=== PATIENT | female | born 1995 | race Caucasian/White ===

== ENCOUNTER 2016-07-31 11:50 | Emergency (ER) | payer OTHER ==
[2016-07-31 12:22] VITALS: RESP 16; TEMP 98.2
--- NOTE | 2016-07-31 14:30 | CPEKG ---
Heart Rate: 87 RR Interval: 690 P-R Interval: 148 QRSD Interval: 102 QT Interval: 372 QTC Interval: 448 P Dow: 51 QRS Dow: 3 T Wave Dow: 22 EKG Severity - NORMAL ECG - EKG Impression: SINUS RHYTHM Electronically Signed By: Johnathon Maddox 31-Jul-2016 14:48:00
--- NOTE | 2016-07-31 14:36 | EDPHY ---
[id number] ILLNESS: This 21-year-old woman has been having some cold symptoms with congestion and postnasal drip for the last 2 days. She felt pretty well except for mild sore throat last night and then awakened this morning at 9 o' clock with tightness in the left side of her chest which is worse with moving and worse with exhalation. Symptoms are moderate to severe. She did notice a little bit of wheezing night at the gym and had childhood asthma but has not had any since. No radiation. No cough or hemoptysis. No leg swelling recent mobilization or travel. Symptoms not better worse with exertion. REVIEW OF SYSTEMS: Eye: no change in vision ENT: no sore throat Cardiac: HPI Pulmonary: HPI Abdomen: no vomiting, diarrhea, abdominal pain Musculoskeletal: no back pain or leg swelling Skin: no rash Neuro: no headache Constitutional: no fever : no urinary symptoms A comprehensive 10 point review of systems is otherwise negative aside from elements mentioned in the history of present illness. PAST MEDICAL HISTORY: Negative Social history: Nonsmoker, no family history of premature coronary disease, a grandmother had a venous thromboembolism in her 60s. General Appearance: Alert and conversant, cooperative. Eyes: No scleral icterus. ENT, Mouth: Normal mucous membranes. Respiratory: Normal respiratory effort, breath sounds equal, lungs are clear to auscultation. No wheezing or rales. Cardiovascular: Regular rate and rhythm. Gastrointestinal: Abdomen is soft and non tender. Neurological: Alert and oriented x3. Normally conversant. Face symmetric, normal movement and sensation in all extremities. Skin: Warm and dry, no rashes. Musculoskeletal: No peripheral edema and no joint swelling. No calf tenderness. Psychiatric: Not agitated. Emergency Department course/MDM: Likely musculoskeletal or inflammatory. Plan for x-ray and EKG and D-dimer. Oral ibuprofen 600 mg. 1532: Results discussed. Negative x-ray D-dimer and EKG. Symptomatic treatment. Smoking Status: Never smoked Constitutional: Initial Vital Signs Temperature (C) 36.8 C 07/31/16 12:19 Heart Rate 80 07/31/16 12:19 Respiratory Rate 16 07/31/16 12:19 Blood Pressure 136/99 H 07/31/16 12:19 O2 Sat (%) 99 07/31/16 12:19 O2 Delivery Mode Room Air Allergies/Adverse Reactions: sulfamethoxazole Allergy (Verified 07/31/16 12:23) Home Medications: Medication Instructions Recorded No Home Meds 07/31/16 Medical Decision Making - Diagnostics EKG Interpretation: 12-lead EKG interpreted by me; official reading is in trace master. My interpretation is sinus rhythm, rate 87, no acute ischemic changes. Differential Diagnosis: Differential diagnosis considered for chest pain including but not limited to myocardial ischemia, aortic dissection, pericarditis, pulmonary embolus, chest wall pain, pleural inflammation and pulmonary infectious causes. - Data Points Laboratory Results: Laboratory Results 07/31/16 14:35 07/31/16 14:35 07/31/16 14:35 WBC 7.32 10^3/uL (3.80-9.50) RBC 4.70 10^6/uL (4.18-5.33) Hgb 14.1 g/dL (12.6-16.3) Hct 42.7 % (38.0-47.0) MCV 90.9 fL (81.5-99.8) MCH 30.0 pg (27.9-34.1) MCHC 33.0 g/dL (32.4-36.7) RDW 13.4 % (11.5-15.2) Plt Count 291 10^3/uL (150-400) MPV 9.7 fL (8.7-11.7) Neut % (Auto) 62.6 % (39.3-74.2) Lymph % (Auto) 26.1 % (15.0-45.0) [place] % (Auto) 7.4 % (4.5-13.0) Eos % (Auto) 3.0 % (0.6-7.6) Baso % (Auto) 0.8 % (0.3-1.7) Nucleat RBC Rel Count 0.0 % (0.0-0.2) Absolute Neuts (auto) 4.58 10^3/uL (1.70-6.50) Absolute Lymphs (auto) 1.91 10^3/uL (1.00-3.00) Absolute Monos (auto) 0.54 10^3/uL (0.30-0.80) Absolute Eos (auto) 0.22 10^3/uL (0.03-0.40) Absolute Basos (auto) 0.06 10^3/uL (0.02-0.10) Absolute Nucleated RBC 0.00 10^3/uL (0-0.01) Immature Gran % 0.1 % (0.0-1.1) Immature Gran # 0.01 10^3/uL (0.00-0.10) D-Dimer < 0.27 ug/mLFEU (0.00-0.50) Sodium 141 mEq/L (134-144) Potassium 4.8 mEq/L (3.5-5.2) Chloride 107 mEq/L (97-110) Carbon Dioxide 23 mEq/l (22-31) Anion Gap 11 mEq/L (8-16) BUN 10 mg/dL (7-23) Creatinine 0.6 mg/dL (0.6-1.0) Estimated GFR > 60 Glucose 100 mg/dL (70-100) Calcium 9.1 mg/dL (8.5-10.4) Beta HCG, Qual NEGATIVE Medications Given: Discontinued Medications Ibuprofen (Motrin) 600 mg PO EDNOW ONE Stop: 07/31/16 14:47 Last Admin: 07/31/16 16:02 Dose: Not Given Departure - Departure Disposition: Home, Routine, Self-Care Clinical Impression: Chest pain Condition: Good Instructions: Chest Pain (ED) Additional Instructions: ibuprofen 600mg by mouth every 6 hours as needed for next 3-5 days likely inflammatory or musculoskeletal Referrals: Erika Cifuentes MD [Medical Doctor] - As per Instructions Michelle Michelle MD [Medical Doctor] - As per Instructions
[2016-07-31] MEDS ORDERED: IBUPROFEN 600 MG TAB PO ONE (14:46)
[2016-07-31 14:52] LABS: % IMMATURE GRANULYOCYTES 0.1 % (0.0-1.1); ABSOLUTE IMMATURE GRANULOCYTES 0.01 10^3/uL (0.00-0.10); ADD DIFF? NO; ADD MORPH? NO; ADD SCAN? NO; ATYPICAL LYMPHOCYTE FLAG 20 (0-99); FRAGMENT RBC FLAG 0 (0-99); HEMATOCRIT 42.7 % (38.0-47.0); HEMOGLOBIN 14.1 g/dL (12.6-16.3); LEFT SHIFT FLG 0 (0-99); LIPEMIA HEMOLYSIS FLAG 80 (0-99); MEAN CELL VOLUME 90.9 fL (81.5-99.8); MEAN PLATELET VOLUME 9.7 fL (8.7-11.7); PLATELET CLUMPS FLAG 10 (0-99); PLATELET COUNT 291 10^3/uL (150-400); RED CELL DISTRIBUTION WIDTH 13.4 % (11.5-15.2)
[2016-07-31 15:29] LABS: ANION GAP 11 mEq/L (8-16); CALCIUM 9.1 mg/dL (8.5-10.4); CARBON DIOXIDE 23 mEq/l (22-31); CHLORIDE 107 mEq/L (97-110); CREATININE 0.6 mg/dL (0.6-1.0); GLOMERULAR FILTRATION RATE > 60; GLUCOSE 100 mg/dL (70-100); POTASSIUM 4.8 mEq/L (3.5-5.2); SODIUM 141 mEq/L (134-144)
--- NOTE | 2016-07-31 15:31 | DX ---
PA and Lateral Chest 14:48 PM Indication: Chest pain Comparison: None Findings: The lungs are well aerated and clear. No pneumothorax, consolidation, or effusion. Heart si ze normal. Impression: Normal. No explanation for pain.
[2016-07-31 16:04] VITALS: BP 116/66; PULSE 76; O2SAT 98
== END 2016-07-31 16:02 | disposition home or self-care (01) ==
DX: R07.89 Other chest pain (principal)